=== PATIENT | female | born 1960 | race Caucasian/White ===

== ENCOUNTER 2022-01-29 10:31 | Outpatient (CLI) | payer BC, SELFPAY | END 2022-01-29 10:32 | disposition home or self-care (01) | PROVIDERS: Visit Provider Orthopaedic Surgery | DX: N30.10 Interstitial cystitis (chronic) without hematuria (principal); Z01.818 Encounter for other preprocedural examination | CPT/HCPCS: 87086; 87088 ==

== ENCOUNTER 2022-02-02 01:36 | Day surgery (SDC) | payer BC, SELFPAY ==
[2022-01-26 11:37] VITALS: BMI 48.8
--- NOTE | 2022-01-26 11:50 | PC.NURSE ---
Report to the Outpatient Waiting Room, entrance under the green pavilion located off [facility], at time 6:00 on date 02/02/22. OR Time: 7:30. - You and your visitor will be asked a series of questions to screen for COVID 19 for your protection. - Only one visitor is allowed at this time. - The patient visitor is requested to leave or wait in car when not with patient. - A mask is required within the hospital. Patients may have clear liquids (water, carbonated beverages, clear teas, apple juice) until 3 hours prior to surgery with a maximum of 20 ounces. - No food from midnight until time of surgery Take the following medications with a SIP of water the morning of surgery: INHALER, LOPRESSOR Medications to discontinue per physician: VITAMINS Date to take last dose: 01/29/[address] MCKEON'S INSTRUCTIONS Please no make-up, nail estonian, hairspray, perfume, deodorant, or body powder the day of surgery. No jewelry (including any body piercings) or valuables the day of surgery, leave them at home. Please take a shower or bath the night before, or the morning of, surgery with an antibacterial soap. Wear comfortable, loose fitting clothing. - Jewelry must be removed prior to entering the operating room. Rings and piercings that are not removed may be cut off. - The hospital will not accept responsibility for valuables. - Please leave all valuables, including medications, at home the day of surgery. If you are going home after surgery, a licensed route cdl driver must drive you home. - NO public transportation without another adult. - We recommend that an adult stay with you for 24 hours following discharge. - We also recommend that you do not drive, make important decision, drink alcoholic beverages, or take any drugs that were not prescribed by your health care provider for at least 24 hours after your discharge time. Follow any additional instructions given to you from your surgeon. If you or anyone in your household have experienced Covid symptoms in the past week, please notify your surgeon or the nurse liaison at the phone number below for possible testing. Telephone instructions given to PT - JILL QUEZADA and asked if any additional questions and then verbalized understanding. Patient advised to call surgeon office or pre surgery nurse liaison [phone] if any additional questions.
--- NOTE | 2022-01-29 07:53 | PM.IMHP ---
H&P: HPI History of Present Illness Date/Time: 01/29/22 07:53 Chief Complaint: Hunner's ulcer Narrative: this is a 61-year-old female with symptoms and cystoscopy consistent with Hunner's ulceration. Biopsy shows inflammation. Review of Systems Review of Systems: Negative except for history of present illness PMFSH Family History Family History Other Diabetes mellitus Family history of cardiovascular disease Family history of elevated blood lipids Social History Social History Smoking status: Never smoker Alcohol intake: current Alcohol use details: VERY RARE Substance use: never Substance use type: does not use Spiritual care concerns: No Meds Home Medications and Allergies Home Medications Medication Instructions Recorded Confirmed Type biotin 5 mg tablet 5 mg PO DAILY 01/26/22 01/26/22 History budesonide-formoterol HFA 160 2 puff inhalation Q12H 01/26/22 01/26/22 History mcg-4.5 mcg/actuation aerosol inhaler (Symbicort) cetirizine 10 mg tablet (Zyrtec) 10 mg PO DAILY 01/26/22 01/26/22 History ibuprofen 600 mg tablet 600 mg PO QID PRN Pain 01/26/22 01/26/22 History metoprolol tartrate 50 mg tablet 25 mg PO BID 01/26/22 01/26/22 History (Lopressor) montelukast 10 mg tablet 10 mg PO DAILY 01/26/22 01/26/22 History (Singulair) Allergies Allergy/AdvReac Type Severity Reaction Status Date / Time acetaminophen Allergy Hives Verified 01/26/22 11:31 [From Darvocet-N] propoxyphene Allergy Hives Verified 01/26/22 11:31 [From Darvocet-N] erythromycin base AdvReac Unknown Diarrhea Verified 01/26/22 11:31 Exam Narrative: no acute distress normal breathing alert oriented x3 Assessment and Plan Assessment and plan (1) Hunner's ulcer: Code(s): N30.10 - Interstitial cystitis (chronic) without hematuria Status: Acute Assessment and Plan: cystoscopy, bladder biopsy, steroid injection. Understands risks of bleeding, infection, damage to the bladder, lack of efficacy. She agrees to proceed
[2022-02-02 06:30] VITALS: BP 200/102; PULSE 74; RESP 18; TEMP 36.4; O2SAT 97
--- NOTE | 2022-02-02 06:52 | P.PNAN_ITS ---
Anes - Initial Pre Proc Eval Procedure: Operation Date: 02/02/22 07:30 Proposed Procedures p Cystoscopy, Bladder Biopsy with Steroid Injection - Clemente Weaver MD Date/Time: 02/02/22 06:52 Surgeon: Clemente Weaver MD Pre Op Diagnosis: hunners ulcer Patient Data Age: 61 Gender: F Height: 1.61 m Weight: 130.2 kg Allergies Allergy/AdvReac Type Severity Reaction Status Date / Time propoxyphene Allergy Hives Verified 02/02/22 06:25 [From Darvocet-N] erythromycin base AdvReac Unknown Diarrhea Verified 02/02/22 06:25 Home Medications Medication Instructions Recorded Confirmed Type biotin 5 mg tablet 5 mg PO DAILY 01/26/22 02/02/22 History budesonide-formoterol HFA 160 2 puff inhalation Q12H 01/26/22 02/02/22 History mcg-4.5 mcg/actuation aerosol inhaler (Symbicort) cetirizine 10 mg tablet (Zyrtec) 10 mg PO DAILY 01/26/22 02/02/22 History ibuprofen 600 mg tablet 600 mg PO QID PRN Pain 01/26/22 02/02/22 History metoprolol tartrate 50 mg tablet 25 mg PO BID 01/26/22 02/02/22 History (Lopressor) montelukast 10 mg tablet 10 mg PO DAILY 01/26/22 02/02/22 History (Singulair) Patient hx anesthesia problems: none Family hx anesthesia problems: none Results Review: All pre-operative results and documents have been reviewed as part of the pre- operative evaluation. [facility] Past Medical History Medical History (Updated 02/02/22 @ 06:53 by Devin Aguilar MD) Asthma Morbid obesity Family History Family History Other Diabetes mellitus Family history of cardiovascular disease Family history of elevated blood lipids Social History Social History Smoking status: Never smoker Alcohol intake: current Alcohol use details: VERY RARE Substance use: never Substance use type: does not use Living arrangements: with family Spiritual care concerns: No Anes - Eval Final PreProcedure Day of Procedure 02/02/22 06:52 Patient weight: morbidly obese Heart: regular rate and rhythm Lungs: clear to auscultation Airway: Mallampati scale class II Neurological: alert and oriented Last oral intake: >/= 8 hours ASA classification: III Emergent: no Anesthetic plan: proceed Anesthesia type and monitoring: general GIVS and standard monitoring Results Review: All pre-operative results and documents have been reviewed as part of the pre- operative evaluation. Informed Consent: The patient's anesthetic plan and its attendant risks and benefits were discussed with the patient/family/POA. Questions were solicited and answers provided to the satisfaction of the patient/family/POA.
[2022-02-02] MEDS: LACTATED RINGERS 1,000 ML 30 ML IV CONT (07:05)
--- NOTE | 2022-02-02 07:16 | WPDHPUPDATE1 ---
History and Physical Update Update Date/Time: 02/02/22 07:16 History and Physical has been reviewed, including an updated exam of the patient. There are NO changes in the patient's condition. Risks, benefits, and alternatives have been discussed and questions answered. Patient agrees to proceed with procedure.
[2022-02-02] MEDS: ceFAZolin 3 GM/D5W 100 ML 100 ML IVPB (07:29)
[2022-02-02] MEDS: LIDOCAINE HCL 2% GEL UROJET 10 ML PKG MUCOUS MEM (07:57)
[2022-02-02] MEDS: TRIAMCINOLONE ACET INJ 40 MG/ML VIAL 200 MG IM (07:58)
[2022-02-02 08:14] VITALS: BP 169/88; PULSE 79; RESP 16; O2SAT 93
--- NOTE | 2022-02-02 08:17 | P.OP_ITS ---
Procedure Note - Detailed Date of Procedure 02/02/22 Pre-op Diagnosis hunners ulcer Post-op Diagnosis Same Procedure Performed Cystoscopy, bladder biopsy, steroid injection Surgeon Clemente Weaver MD Anesthesia General Findings Diffusely inflamed bladder. Areas of Hunner's ulceration on bilateral lateral wall Description of Procedure She was correctly identified. Informed consent obtained. She from the operating room. She was given general anesthesia. She was placed in dorsal lithotomy position. Pressure points were padded. Skin appropriate perioperative antibiotics. A time-out performed. Her bladder was diffusely reddened with 2 areas of Hunner's ulceration on the lateral mendosa. Both right and left lateral mendosa. These were remote from the ureteral orifice. I biopsied both these areas. I generously fulgurated the lesions. I then inject ed my Kenalog. 200 mg total. 5 cc of Kenalog. I refill ureteral the areas. All full urethra was done away from the renal orifice. There is no significant bleeding from the bladder. She was awakened and transferred to PACU in stable condition. Estimated Blood Loss 5 Pathology Yes (Bladder biopsy) Complications No immediate complications Condition Stable Disposition PACU
[2022-02-02 08:40] VITALS: BP 160/81; PULSE 61; RESP 16
[2022-02-02] MEDS: oxyCODONE HCL (*CRX) 5 MG TAB IR PO (08:47)
[2022-02-02 09:10] VITALS: BP 151/90; PULSE 62; RESP 16
[2022-02-02 09:40] VITALS: BP 155/74; PULSE 58; RESP 16
== END 2022-02-02 09:48 | disposition home or self-care (01) ==
PROVIDERS: Visit Provider Urology
PROC: 0TBB8ZX Excision of Bladder, Via Natural or Artificial Opening Endoscopic, Diagnostic (ICD-10-PCS; CPT 52204; principal; 2022-02-02 07:30)
DX: N30.10 Interstitial cystitis (chronic) without hematuria (principal); J45.909 Unspecified asthma, uncomplicated; Z79.51 Long term (current) use of inhaled steroids; E66.01 Morbid (severe) obesity due to excess calories; Z68.43 Body mass index [BMI] 50.0-59.9, adult
CPT/HCPCS: 52204; 52283; 88305; 88342; A9270; J0690; J2250; J2704; J3010; J3301; J7120

== ENCOUNTER → 2022-05-17 12:42 | Outpatient (CLI) | payer BC, SELFPAY ==
--- NOTE | ~2022-05-17 | CT_ITS ---
EXAMINATION: CT abdomen pelvis wo/w con DATE: 05/17/2022 13:39 INDICATION: Gross hematuria. TECHNIQUE: Computed tomography (CT) of the abdomen and pelvis was performed without and with intraven ous contrast using a total of 130 mL Omnipaque-350 intravenous contrast with a double-bolus technique for simultaneous opacification of the renal parenchyma and renal collecting system. Automated exposu re control and iterative reconstruction technique were employed. The dose-length product was 2355.12 mGy-cm. COMPARISON: None FINDINGS: The visualized portions of the lung bases demonstrate mild atelectasis. No pleural effusion. The hear t size is normal. No pericardial effusion. There is diffuse hepatic steatosis. The gallbladder, splee n, pancreas, and adrenal glands are normal. The kidneys are normal. There is no urolithiasis. The ure ters are well opacified and are normal. There is gas in the bladder lumen, likely from recent instrum entation. There is diverticulosis of the colon without evidence of diverticulitis. There are no dilat ed loops of bowel. The appendix is not visualized. There are no pathologically enlarged lymph nodes. There is no free intraperitoneal fluid. There is a left inguinal hernia containing fat. There is amilcar re thoracic and lumbar spondylosis. IMPRESSION: 1. No etiology for hematuria. Reviewed, dictated and finalized at location A. [employer]
--- NOTE | ~2022-05-17 | XR_ITS ---
EXAMINATION: XR abdomen/kub 1V DATE: 05/17/2022 13:00 INDICATION: Gross hematuria. TECHNIQUE: A supine view of the abdomen on 2 radiographs was obtained. COMPARISON: CT abdomen and pelvis 05/17/2022 FINDINGS: There are no dilated loops of bowel. There is a phlebolith in the pelvis. There is no uroli thiasis. IMPRESSION: 1. No urolithiasis. Reviewed, dictated and finalized at location A. [employer] IMPRESSION: 1. No urolithiasis.
[2022-05-17 13:17] LABS: Estimated Glomerular Filt Rate 56
== END ==
PROVIDERS: PCP Nurse Practitioner Adult Health; Visit Provider Nurse Practitioner Adult Health
DX: R31.0 Gross hematuria (principal)
CPT/HCPCS: 74018; 74178; Q9967

== ENCOUNTER 2024-01-31 00:26 | Day surgery (SDC) | payer BC, MEDICARE, SELFPAY ==
--- NOTE | 2024-01-26 09:37 | PM.IMHP ---
H&P: HPI History of Present Illness Date/Time: 01/26/24 09:37 Chief Complaint: Hunner's ulcer Narrative: is ready for another steroid injection. Last procedure was 1 year ago Review of Systems Review of Systems: All systems reviewed & are unremarkable except as noted in HPI and below PMFSH Past Medical History Medical History Asthma Morbid obesity Family History Family History Other Diabetes mellitus Family history of cardiovascular disease Family history of elevated blood lipids Social History Social History Smoking status: Never smoker Alcohol intake: current Alcohol use details: VERY RARE Substance use: never Substance use type: does not use Lack of Transportation: No Lack of Food: Never True Current Housing: I Have Housing Concerned About Future Housing: No Difficulty Paying Gas/Electric Bills: No Difficulty Paying for Meds: No Currently Unemployed: No Education: Bachelor's Degree Difficulty w/ Childcare or Family Care: No Living arrangements: with family Spiritual care concerns: No Meds Home Medications and Allergies Home Medications Medication Instructions Recorded Confirmed Type biotin 5 mg tablet 5 mg PO DAILY 01/26/22 03/20/23 History cetirizine 10 mg tablet (Zyrtec) 10 mg PO DAILY 01/26/22 03/20/23 History ibuprofen 600 mg tablet 600 mg PO QID PRN Pain 01/26/22 03/20/23 History metoprolol tartrate 50 mg tablet 25 mg PO BID 01/26/22 03/20/23 History (Lopressor) montelukast 10 mg tablet 10 mg PO DAILY 01/26/22 03/20/23 History (Singulair) levofloxacin 500 mg tablet 500 mg PO DAILY #6 tabs 02/02/22 03/20/23 Rx phenazopyridine 200 mg tablet 200 mg PO TID PRN pain 6 doses #30 02/02/22 03/20/23 Rx (Pyridium) tabs tramadol 50 mg tablet 50 mg PO Q6H PRN pain #20 tabs 02/02/22 03/20/23 Rx calcium carbonate 500 mg-vitamin 1 tablet PO DAILY 03/20/23 03/20/23 History D3 5 mcg (200 unit) tablet cefdinir 300 mg capsule 300 mg PO Q12H 03/20/23 03/20/23 History cyclobenzaprine 10 mg tablet 10 mg PO TID 03/20/23 03/20/23 History doxycycline hyclate 100 mg capsule 100 mg PO DAILY 03/20/23 03/20/23 History estradiol 0.01% (0.1 mg/gram) 1 appful vaginal DAILY 03/20/23 03/20/23 History vaginal cream (Estrace) fluticasone propionate 50 1 inh inhalation Q12H 03/20/23 03/20/23 History mcg/actuation blister powder for inhalation (Flovent Diskus) hydrocodone 5 mg-acetaminophen 325 1 tablet PO Q8H PRN 03/20/23 03/20/23 History mg tablet methenam 118 mg-m.blue 10 1 tablet PO QID 03/20/23 03/20/23 History mg-s.phos 40.8 mg-p.salic 36 mg-hyos capsule (Uribel) methenamine hippurate 1 gram 1 g PO BID 03/20/23 03/20/23 History tablet (Hiprex) Allergies Allergy/AdvReac Type Severity Reaction Status Date / Time propoxyphene Allergy Hives Verified 03/20/23 13:09 [From Roel] erythromycin base AdvReac Unknown Diarrhea Verified 03/20/23 13:09 Exam Narrative: no acute distress normal breathing alert and orient x3 Assessment and Plan Assessment and plan (1) Hunner's ulcer: Code(s): N30.10 - Interstitial cystitis (chronic) without hematuria Status: Acute Assessment and Plan: cystoscopy, bladder biopsy, steroid injection
[2024-01-28 10:13] VITALS: BMI 51.2
--- NOTE | 2024-01-28 10:27 | PC.NURSE ---
Report to the Outpatient Waiting Room, entrance under the green pavilion located off [facility], at 0930 on 01/31/24. Planned Procedure Time: 1130. Time changes happen often and if your time is changed the preop area will call you the afternoon before. - You and your visitor will be asked to self-screen and do not enter if you have any COVID symptoms. - A mask is optional within the hospital at this time. Patients may have clear liquids (water, carbonated beverages, clear teas, apple juice) until 3 hours prior to surgery with a maximum of 20 ounces. - No food from midnight until time of surgery Take the following medications with a SIP of water the morning of surgery: Metopropol, Inhaler and pain medication if needed DO NOT STOP ANY OF YOUR OTHER PRESCRIPTION MEDICATIONS PRIOR TO SURGERY ?EXCEPT THE FOLLOWING Medications to discontinue per physician Vitamins/supplements 3 days prior Please no make-up, nail german, hairspray, perfume, deodorant, or body powder the day of surgery. No jewelry (including any body piercings) or valuables the day of surgery, leave them at home. Please take a shower or bath the night before, or the morning of, surgery with an antibacterial soap. Wear comfortable, loose fitting clothing. - Jewelry must be removed prior to entering the operating room. Rings and piercings that are not removed may be cut off. - The hospital will not accept responsibility for valuables. - Please leave all valuables, including medications, at home the day of surgery. If you are going home after surgery, a licensed solid waste truck driver must drive you home. - NO public transportation without another adult if you receive anesthesia. - We recommend that an adult stay with you for 24 hours following discharge. - We also recommend that you do not drive, make important decision, drink alcoholic beverages, or take any drugs that were not prescribed by your health care provider for at least 24 hours after your discharge time. Follow any additional instructions given to you from your surgeon. If you or anyone in your household have experienced Covid symptoms in the past week, please notify your surgeon or the nurse liaison at the phone number below for possible testing. Telephone instructions given to patient and asked if any additional questions and then verbalized understanding. Patient advised to call surgeon office or pre surgery nurse liaison [phone] if any additional questions.
--- NOTE | 2024-01-31 06:23 | WPDHPUPDATE1 ---
History and Physical Update Update Date/Time: 01/31/24 06:23 History and Physical has been reviewed, including an updated exam of the patient. There are NO changes in the patient's condition. Risks, benefits, and alternatives have been discussed and questions answered. Patient agrees to proceed with procedure.
[2024-01-31 09:39] VITALS: BP 181/102; PULSE 64; RESP 18; TEMP 36.1; O2SAT 96
[2024-01-31 09:40] VITALS: BMI 53.6
[2024-01-31] MEDS: LACTATED RINGERS 1,000 ML 30 ML IV CONT (10:10)
--- NOTE | 2024-01-31 10:21 | WPDANESEPPF ---
Anes - Initial Pre Proc Eval Procedure: Operation Date: 01/31/24 11:30 Proposed Procedures p Cystoscopy, Bladder Biopsy, Steroid Injection - Clemente Weaver MD Date/Time: 01/31/24 10:21 Surgeon: Clemente Weaver MD Pre Op Diagnosis: hunners ulcer Patient Data Age: 63 Gender: F Height: 1.59 m Weight: 135.2 kg Allergies Allergy/AdvReac Type Severity Reaction Status Date / Time propoxyphene Allergy Unknown Hives Verified 01/31/24 09:57 [From Darvocet-N] erythromycin base AdvReac Unknown Diarrhea Verified 01/31/24 09:57 Home Medications Medication Instructions Recorded Confirmed Type biotin 5 mg tablet 5 mg PO DAILY 01/26/22 01/28/24 History calcium carbonate 500 mg-vitamin 1 tablet PO DAILY 03/20/23 01/28/24 History D3 5 mcg (200 unit) tablet Lactobacillus 1 cap PO DAILY 01/28/24 01/28/24 History acidophilus-Bifidobac.animalis 2.5 billion cell capsule (Daily Probiotic) albuterol sulfate 90 mcg/actuation 2 inh inhalation QID PRN Wheezing 01/28/24 01/28/24 History aerosol inhaler cetirizine 10 mg tablet (Zyrtec) 10 mg PO DAILY 01/28/24 01/28/24 History d-mannose 500 mg capsule (AZO 1,000 mg PO DAILY 01/28/24 01/28/24 History D-Mannose) dextromethorphan-guaifenesin ER 60 1 tablet PO Q12H PRN asthma 01/28/24 01/28/24 History mg-1,200 mg tab,extend release,12hr (Mucinex DM) ibuprofen 600 mg tablet 600 mg PO BID PRN Pain 01/28/24 01/28/24 History metoprolol tartrate 50 mg tablet 50 mg PO Q12H 01/28/24 01/28/24 History (Lopressor) Patient hx anesthesia problems: none Family hx anesthesia problems: none Results Review: All pre-operative results and documents have been reviewed as part of the pre-operative evaluation. [facility] Past Medical History Medical History Asthma Morbid obesity Family History Family History Other Diabetes mellitus Family history of cardiovascular disease Family history of elevated blood lipids Social History Social History Smoking status: Never smoker Second hand tobacco smoke exposure: No Alcohol intake: never Alcohol use details: VERY RARE Substance use: never Substance use type: does not use Lack of Transportation: No Lack of Food: Never True Current Housing: I Have Housing Concerned About Future Housing: No Difficulty Paying Gas/Electric Bills: No Difficulty Paying for Meds: No Currently Unemployed: No Education: Bachelor's Degree Difficulty w/ Childcare or Family Care: No Living arrangements: with family Spiritual care concerns: No Anes - Eval Final PreProcedure Day of Procedure 01/31/24 10:21 Patient weight: morbidly obese Heart: regular rate and rhythm Lungs: clear to auscultation Airway: Mallampati scale class II and special considerations (Missing upper teeth post aspect. ) Neurological: alert and oriented Last oral intake: >/= 8 hours ASA classification: III Emergent: no Anesthetic plan: proceed Anesthesia type and monitoring: general GIVS and standard monitoring Results Review: All pre-operative results and documents have been reviewed as part of the pre-operative evaluation. HTN, asthma (RAD), denies JEREMIE. Informed Consent: The patient's anesthetic plan and its attendant risks and benefits were discussed with the patient/family/POA. Questions were solicited and answers provided to the satisfaction of the patient/family/POA.
[2024-01-31] MEDS: ceFAZolin 3 GM/D5W 100 ML 100 ML IVPB (10:23)
[2024-01-31] MEDS: LIDOCAINE HCL 2% GEL UROJET 10 ML PKG MUCOUS MEM (10:29)
[2024-01-31 10:51] VITALS: BP 139/49; PULSE 64; RESP 14; O2SAT 95
--- NOTE | 2024-01-31 10:53 | W.PM.PROC2 ---
Procedure Note - Detailed Date of Procedure 01/31/24 Pre-op Diagnosis hunners ulcer Post-op Diagnosis Same Procedure Performed cystoscopy, bladder biopsy, injection of steroids Surgeon Clemente Weaver MD Anesthesia MAC Indications this will recurrent Hunner's ulcer variety interstitial cystitis. She is here today for repeat treatment. She understands risks of bleeding, infection, need for repeat procedures, damage to the urinary tract. She agrees to proceed Findings inflamed area near dome of bladder Description of Procedure she was correctly identified. Informed consent obtained. From the operating room. She was given monitored anesthesia care. She was placed in dorsal lithotomy position. She was prepped and draped sterile fashion. Time-out performed. She was given appropriate perioperative antibiotics I examined the bladder via cystoscopy. There was an area of redness and irritation near the left dome of her bladder. This was biopsied. I did a superficial mucosal biopsy. This was then fulgurated. I then injected my steroids. I injected 5 mL of Kenalog. Concentration was 40 mg per mil. A total of 200 mg of medication.. there was minimal bleeding from the injection sites. Her bladder was drained. She was awakened transferred to PACU in stable condition Estimated Blood Loss 1 Pathology Yes ( Bladder biopsy) Complications No immediate complications Condition Stable Disposition PACU
[2024-01-31 11:22] VITALS: BP 114/97; PULSE 51; RESP 16; O2SAT 96
[2024-01-31 11:52] VITALS: BP 143/93; PULSE 57; RESP 16; O2SAT 97
--- NOTE | 2024-01-31 12:12 | SUR.PHASEII ---
Pt does NOT have to void prior to discharge per MD Weaver
== END 2024-01-31 12:10 | disposition home or self-care (01) ==
PROVIDERS: Visit Provider Urology
PROC: 0TBB8ZX Excision of Bladder, Via Natural or Artificial Opening Endoscopic, Diagnostic (ICD-10-PCS; CPT 52204; principal; 2024-01-31 11:30)
DX: N30.10 Interstitial cystitis (chronic) without hematuria (principal); J45.909 Unspecified asthma, uncomplicated; Z79.51 Long term (current) use of inhaled steroids; E66.01 Morbid (severe) obesity due to excess calories; Z68.43 Body mass index [BMI] 50.0-59.9, adult
CPT/HCPCS: 52204; 52283; 88305; J0690; J1100; J2405; J2704; J3010; J3301; J7120

== ENCOUNTER 2025-06-12 10:08 | Outpatient (CLI) | payer BC, MEDICARE, SELFPAY ==
--- OUTSIDE RECORDS SUMMARY | 2025-06-12 10:12 | XMS_ITS | Encounter Summary ---
Author Organization [facility] Address [address] [place] [address] Phone Care Team Providers Care Envelope Stamping Machine Operator Name Role Phone Vijay Franco MD Unavailable Provider, None Primary Care Provider Jamila Damon APRN, OBSTETRICIAN/GYNECOLOGIST Primary Care P rovider Reason for Visit * Reason Comments Medication Refill Encounter Details Date Type Department Care Team (Late st Contact Info) Description 02/13/2021 Refill [facility] [address] [place] [address] Vijay Franco MD [address] [place] [address] Medication Refill Social History Tobacco Use Types Packs/Day Years Used Date Smoking Tobacco: Never Smokeless Tobacco: Never Alcohol Use Standard Drinks/Week Comments Not Currently 0 (1 standard drink = 0.6 oz pur e alcohol) OCCASIONALLY Sexually Active Control Partners Comments Yes Male Comments No Sex and Gender Information Value Date Recorded Sex Assigned at Female 05/20/2024 10:10 AM MILK DELIVERER Legal Sex Female 12:44 AM CDT Gender Identity Female 05/20/2024 10:10 AM MILK DELIVERER Sexual Orientation Straight 05/20/2024 10 :10 AM MILK DELIVERER COVID-19 Exposure Response Date Recorded In the last month, have you been in contact with someone who was confirmed or suspected to have Coronavirus / COVID-19? No / Unsure 01/25/2021 8:12 AM CDT documented as of this encounter Miscellaneous Notes * Telephone Encounter - Maye Pathak RN - 02/13/2021 8:38 AM CDT Patient needs an appointment last office visit was on 10/08/16 documented in this encounter Plan of Treatment Upcoming Encounters Date Type Department Care Team (Late st Contact Info) Description 06/14/2025 2:45 PM MILK DELIVERER Office Visit [facility] - Primary Care - [place] [address] [place] [address] Jamila Lee APRN, OBSTETRICIAN/GYNECOLOGIST [address] [place] [address] documented as of this encounter Visit Diagnoses Not on filedocumented in this encounter Additional Health Concerns Infection Onset Date Last Indicated Resolved Time COVID - 19 06/06/2021 06/06/2021 06/06/2021 12:3 2 PM MILK DELIVERER COVID - 19 06/06/2021 06/06/2021 06/26/2021 12:1 6 AM MILK DELIVERER documented as of this encounter Care Teams Envelope Stamping Machine Operator Relationship Specialty Start Date End Date Provider, None [place] PCP - General 05/10/16 05/11/24 Jamila Lee APRN, OBSTETRICIAN/GYNECOLOGIST [address] [place] [address] PCP - General Advanced Practice Nurse 05/12/24 Vijay Franco MD Consulting Physician Pulmonary Disease 05/10/16 documented as of this encounter
--- OUTSIDE RECORDS SUMMARY | 2025-06-12 10:12 | XMS_ITS | Clinical Summary ---
Author Organization [facility] Address [address] [place] [address] Phone Care Team Providers Care Diet Supervisor Name Role Phone No, Physician Primary Care Provider [phone] Allergies Active Allergy Reactions Criticality Noted Date Comments Propoxyphene Hives Medium Propoxyphene-Acetaminophen Urticaria Medium 8 Medications tiotropium (SPIRIVA WITH HANDIHALER) 18 mcg per inhalation capsule inhale 1 capsule by inhalation route every day 0 0 7 Active ibuprofen (ibuprofen) 200 mg tab/cap 200 mg. 0 1 Active cetirizine (ZyrTEC) 10 mg tablet Take 1 tablet (10 mg total) by mouth daily Active montelukast (SINGULAIR) 10 mg tablet Take 1 tablet (10 mg total) by mouth daily 1 Active metoprolol tartrate (LOPRESSOR) 25 mg immediate release tablet Take 1 tablet (25 mg total) by mouth 2 (two) times a day Active albuterol HFA (ProAir HFA) 90 mcg/actuation inhalerIndicatio ns:Viral URI with cough,Asthma with acute exacerbation, unspecified asthma severity, unspecified whether persistent Inhale 2 puffs every 4 (four) hours as needed for wheezing or shortness of breath 8.5 g 1 Active Flovent Diskus 50 mcg/actuation diskus inhalerIndicatio ns:Asthma with acute exacerbation, unspecified asthma severity, unspecified whether persistent Inhale 2 puffs 2 (two) times a day Rinse mouth with water after use. Do not swallow. 60 each 1 Active multivitamin capsule Take 1 capsule by mouth daily Active methenamine (HIPREX) 1 gram tablet 3 Active estradioL (ESTRACE) 0.01 % (0.1 mg/gram) vaginal cream 3 Active L. acidophilus/Bifi d. animalis 32 billion cell capsule Take 1 capsule by mouth daily Active albuterol HFA (PROVENTIL HFA,VENTOLIN HFA,PROAIR HFA) 90 mcg/actuation inhalerIndicatio ns:Moderate asthma with exacerbation, unspecified whether persistent Inhale 2 puffs every 6 (six) hours as needed for wheezing 1 each 4 Active Active Problems Problem Noted Date Diagnosed Date Status post foot joint surgery 12/26/2017 0 12/04/2022 Essential (primary) hypertension 06/14/2016 Mild intermittent asthma without complication Surgical History Surgery Date Site/Laterality Comments URETHRAL DILATION 07/08/1969 - 07/07/1970 CERVICAL BIOPSY W/ LOOP ELECTRODE EXCISION 07/08/2000 - 07/07/2001 ARIANA II to III of cervix REPLACEMENT TOTAL KNEE 07/08/2009 - 07/07/2010 Right KNEE ARTHROSCOPY 07/08/1996 - 07/07/1997 Right Medical History Medical History Date Comments Hypertension Osteoarthritis Abnormal Pap smear of cervix 2000 ARIANA II to III Seasonal allergies Asthma Diverticulitis 2013 Family History Medical History Relation Name Comments Neurodegenerative disease Father pr ogressive supranuclear palsy; COD Skin cancer Father Pancreatic cancer Father's Sister 1 Hodgkin's lymphoma Father's Sister 2 Heart attack Maternal Grandfather COD in his 50's Diabetes Maternal Grandmother Osteoporosis Maternal Grandmother Hyperlipidemia Mother Osteoporosis Mother Diabetes Mother's Brother Lung cancer Paternal Grandfather Hypertension Paternal Grandmother Stroke Paternal Grandmother Relation Name Status Comments Father Father's Sister 1 Father's Sister 2 Maternal Grandfather Maternal Grandmother Mother Mother's Brother Paternal Grandfather Paternal Grandmother Social History Tobacco Use Types Packs/Day Years Used Date Smoking Tobacco: Never Smokeless Tobacco: Never Tobacco Cessation:Counseling Given: Not Answered Alcohol Use Standard Drinks/Week Comments Yes 0 (1 standard drink = 0.6 oz pur e alcohol) Personal Safety Answer Date Recorded Have you ever been in or are you currently in a harmful physical or emotional relationship or is someone making you feel afraid or unsafe? Denies 11/30/2022 Comments No Sex and Gender Information Value Date Recorded Sex Assigned at Not on file Legal Sex Female 1:47 AM PATROL POLICE SERGEANT Gender Identity Not on file Sexual Orientation Not on file Occupation Industry Job Start Date Job End Date Retired Not on file Not on file Not on file Obstetrics History Para Term AB IAB SAB Ectopic Multiple Livin g Live Births 4 2 1 1 2 1 1 0 0 2 2 Date Outcome GA Total Labor Labor/2nd/3rd Weight Sex Type Anes PTL Alondra A1 A5 Name Clin Term SAB IAB Last Filed Vital Signs Vital Sign Reading Time Taken Comments Blood Pressure 162/96 07/23/2023 12:33 PM PATROL POLICE SERGEANT Pulse 104 07/23/2023 12:33 PM PATROL POLICE SERGEANT Temperature 36.7 C (98.1 F) 07/23/2023 12:33 PM PATROL POLICE SERGEANT Respiratory Rate 20 07/23/2023 12:3 3 PM PATROL POLICE SERGEANT Oxygen Saturation 96% 07/23/2023 12: 33 PM PATROL POLICE SERGEANT Inhaled Oxygen Concentration - - Weight 134.7 kg (296 lb 15.4 oz) 2023 12:33 PM PATROL POLICE SERGEANT Height 158.8 cm (5' 2.52) 07/23/2023 1 2:33 PM PATROL POLICE SERGEANT Body Mass Index 53.41 07/23/2023 12:33 PM PATROL POLICE SERGEANT Plan of Treatment Health Maintenance Due Date Last Done Comments Colon Cancer Screening-Colonoscopy 1960 Depression Screening 1960 Hepatitis C Screening 1960 DTaP/Tdap/Td Vaccine (1 - Tdap) 10/25/1971 Hepatitis B Screening 1978 Pneumococcal vaccine <65 (1 of 2 - PCV) 10/25/1979 Zoster Vaccine (1 of 2) 2010 Breast Cancer Screening-Mammogram 02/07/2022 02/07/2021, 07/03/2019, 09/19/2017 Cervical Cancer Screening 02/07/2022 02/07/2021, Regular Well Visit/Exam 18-64 02/26/2024, 02/22/2022, 02/07/2021, Additional history exists Covid-19 Vaccine (2024-2 6 season) 2025 05/12/2021, 10/01/2020, 09/08/2020 Influenza Vaccine (#1) 2025 , 04/05/2019, 04/09/2017 Procedures Procedure Name Priority Date/Time Associated Diagnosis Comments SCREENING MAMMOGRAM 2D BILATERAL Schedule Routine, Read Routine (OP Routine) 02/07/2021 11:04 AM CDT Encounter for screening mammogram for malignant neoplasm of breast IMAGING PAP AND HPV MRNA E6/E7 Routine 02/07/2021 12:00 AM CDT from Last 3 Months or Most Recently Relevant to Health Maintenance Results * Screening Mammogram 2D Bilateral (02/07/2021 11:04 AM CDT) Anatomical Region Laterality Modality Breast Bilateral Mammography Narrative 02/07/2021 2:34 PM CDT BILATERAL DIGITAL MAMMOGRAPHY The present examination has been compared to prior imaging studies dated 03 July 2019. Mammography Findings CAD (computer-aided detection) software was utilized. The breasts are heterogeneously dense. This may lower the sensitivity of mammography. No masses, significant calcifications or other abnormalities are seen. There are multiple punctate calcifications within both breasts, unchanged. Several circumscribed oil cysts are also seen within the right breast. Impression There is no mammographic evidence of malignancy. Screening mammogram in 1 year is recommended. BI-RADS Category 2: Benign. PATIENT LETTER SENT us Maye Mark CAGE FIGHTER IMG MAMMO PROCEDURES Janelle l Result * Imaging Pap and HPV mRNA E6/E7 (02/07/2021 12:00 AM CDT) CLINICAL INFORMATION: [employer] [facility] Comment:[facility]menopausal [facility]MP [facility] Comment:POST JERRI Previous Pap [employer] [facility] Comment:INFORMATION NOT PROV IDED Prev. Bx [facility] Comment:INFORMATION NOT PROV IDED SOURCE: [facility] Comment:Cervix, Endocervix Pap, specimen adequacy [facility] Comment: Satisfactory for evaluation. Endocervical/transformation zone component absent. HPV interp [facility] Comment:Negative for intraep ithelial lesion or malignancy. COMMENTS [facility] Comment: This Pap test has been evaluated with computer assisted technology. Building Performance Consultant [facility] Comment: DDS, CT(ASCP) CT screening location: [place] [address] [address] [place] [address] [facility] Comment: EXPLANATORY NOTE: The Pap is a screening test for cervical cancer. It is not a diagnostic test and is subject to false negative and false positive results. It is most reliable when a satisfactory sample, regularly obtained, is submitted with relevant clinical findings and history, and when the Pap result is evaluated along with historic and current clinical information. Human papillomavirus RNA, High Risk E6/E7 Not Detected Not Detected [facility] [employer] [place] Comment: Methodology: E Learning Coordinator-Mediated Amplification This assay detects E6/E7 viral messenger RNA (mRNA) from 14 high-risk HPV types (16,18,31,33,35,39,45,51,52,56,58,59,66,68). The analytical performance characteristics of this assay have been determined by [employer]. The modifications have not been cleared or approved by the FDA. This assay has been validated pursuant to the CLIA regulations and is used for clinical purposes. For additional information, please refer to http://education.[employer]/faq/HCZ453x3 (This link if provided for information/ educational purposes only.) 02/07/2021 02/08/2021 11: 38 AM CDT Narrative [facility] - 02/09/2021 2:04 PM CDT FASTING: UNKNOWN us Maye Mark CAGE FIGHTER LAB PATHOLOGY ORDERABLES Final Result [facility] [address] [address] [place] [id number] [employer] Technologies[employer]to [place] [address] [address] [place] [id number] from Last 3 Months or Most Recently Relevant to Health Maintenance Insurance ANTHEM ACCESS CHOICE [facility] Address: [facility] [id number] [place] [address] COMMERCIAL GENERIC ANTHEM ACCESS CHOICE MEDICARE Care Teams Diet Supervisor Relationship Specialty Start Date End Date No, Physician PCP - General 08/28/17
--- OUTSIDE RECORDS SUMMARY | 2025-06-12 10:12 | XMS_ITS | Encounter Summary ---
Author Organization [facility] Address [address] [place] [address] Phone Care Team Providers Care Municipal Services Manager Name Role Phone Vijay Franco MD Unavailable Provider, None Primary Care Provider Jamila Damon APRN, IRONING PLEATER Primary Care P rovider Reason for Visit * Reason Comments Medication Refill Encounter Details Date Type Department Care Team (Late st Contact Info) Description 04/13/2024 Refill [facility] [address] [place] [address] Thomas Sewell APRN, IRONING PLEATER [address] [place] [address] Medication Refill Social History Tobacco Use Types Packs/Day Years Used Date Smoking Tobacco: Never Smokeless Tobacco: Never Alcohol Use Standard Drinks/Week Comments Not Currently 0 (1 standard drink = 0.6 oz pur e alcohol) OCCASIONALLY Sexually Active Control Partners Comments Yes Male Comments No Sex and Gender Information Value Date Recorded Sex Assigned at Female 05/20/2024 10:10 AM PUBLIC INFORMATION RELATIONS MANAGER Legal Sex Female 12:44 AM CDT Gender Identity Female 05/20/2024 10:10 AM PUBLIC INFORMATION RELATIONS MANAGER Sexual Orientation Straight 05/20/2024 10 :10 AM PUBLIC INFORMATION RELATIONS MANAGER documented as of this encounter Plan of Treatment Upcoming Encounters Date Type Department Care Team (Late st Contact Info) Description 06/14/2025 2:45 PM PUBLIC INFORMATION RELATIONS MANAGER Office Visit [facility] - Primary Care - [place] [address] [place] [id number] Jamila Lee APRN, CNP [address] [place] [address] documented as of this encounter Visit Diagnoses Not on filedocumented in this encounter Care Teams Municipal Services Manager Relationship Specialty Start Date End Date Provider, None [place] PCP - General 05/10/16 05/11/24 Jamila Lee APRN, LINH [address] [place] [address] PCP - General Advanced Practice Nurse 05/12/24 Vijay Franco MD Consulting Physician Pulmonary Disease 05/10/16 documented as of this encounter
--- OUTSIDE RECORDS SUMMARY | 2025-06-12 10:12 | XMS_ITS | Encounter Summary ---
Author Organization [facility] Address [address] [place] [address] Phone Care Team Providers Care Convention Worker Name Role Phone Jamila Lee APRN, CNP Primary Care P rovider Encounter Details Date Type Department Care Team (Latest Contact Info) Description 02/12/2025 Transcribe Orders [facility] [address] [place] [address] Jamila Lee APRN, ADVERTISING ASSOCIATE [address] [place] [address] Abnormal mammogram (Primary Dx) Social History Tobacco Use Types Packs/Day Years Used Date Smoking Tobacco: Never Smokeless Tobacco: Never Alcohol Use Standard Drinks/Week Comments Not Currently 0 (1 standard drink = 0.6 oz pur e alcohol) special occassions [facility] Utilities Answer Date Recorded In the past 12 months has [email or web address] electric, gas, oil, or water company threatened to shut off services in your home? No 05/11/2024 Social Connection and Isolation Panel Answer Date Recorded In a typical week, how many times do you talk on the phone with family, friends, or neighbors? More than three times a week 05/11/2024 How often do you get togethe r with friends or relatives? More than three times a week 05/11/2024 How often do you attend [facility] or episcopalian services? More than 4 times per year 05/11/2024 Do you belong to any clubs o r organizations such as hoahaoism groups, unions, fraternal or athletic groups, or school groups? No 05/11/2024 How often do you attend meet ings of the clubs or organizations you belong to? Patient declined 05/11/2024 Are you , , di vorced, , never , or living with a partner? 05/11/2024 AUDIT-C Answer Date Recorded Q1: How often do you have a drink containing alc ohol? Monthly or less 05/11/2024 Q2: How many drinks containi ng alcohol do you have on a typical day when you are drinking? 1 or 2 05/11/2024 Q3: How often do you have si x or more drinks on one occasion? Never 05/11/2024 Overall Financial Resource Strain (CARDIA) Answe r Date Recorded How hard is it for you to pa y for the very basics like food, housing, medical care, and heating? Not very hard 05/11/2024 PHQ-2 Answer Date Recorded Total Score - Questions 1-9 2 01/06 [facility] Occup[facility] ional [facility] - Occupational Stress Questionnaire Answer Date Recorded Do you feel stress - tense, restless, nervous, or anxious, or unable to sleep at night because your mind is troubled all the time - these days? Only a little 05/11/2024 Exercise Vital Sign Answer Date Recorde d On average, how many days pe r week do you engage in moderate to strenuous exercise (like a brisk walk)? 2 days 05/11/2024 On average, how many minutes do you engage in exercise at this level? 20 min 05/11/2024 Hunger Vital Sign Answer Date Recorded Within the past 12 months, y ou worried that your food would run out before you got the money to buy more. Never true 05/11/20 24 Within the past 12 months, t he food you bought just didn't last and you didn't have money to get more. Never true 05/11/2024 PRAPARE - Transportation Answer Date Re corded In the past 12 months, has l ack of transportation kept you from medical appointments or from getting medications? No 10/2023 In the past 12 months, has l ack of transportation kept you from meetings, work, or from getting things needed for daily living? No 05/11/2024 Housing Stability Vital Sign Answer Jaylon e Recorded In the last 12 months, was t here a time when you were not able to pay the mortgage or rent on time? No 05/11/2024 In the past 12 months, how m any times have you moved where you were living? 0 05/11/2024 At any time in the past 12 m [facility], were you homeless or living in a senior care (including now)? No 05/11/2024 Sexually Active Control Partners Comments Yes Male Comments No Sex and Gender Information Value Date Recorded Sex Assigned at Female 05/20/2024 10:10 AM MARGARINE CHURN OPERATOR Legal Sex Female 12:44 AM CDT Gender Identity Female 05/20/2024 10:10 AM MARGARINE CHURN OPERATOR Sexual Orientation Straight 05/20/2024 10 :10 AM MARGARINE CHURN OPERATOR documented as of this encounter Plan of Treatment Upcoming Encounters Date Type Department Care Team (Late st Contact Info) Description 06/14/2025 2:45 PM MARGARINE CHURN OPERATOR Office Visit [facility] - Primary Care - [place] [address] [place] [id number] Jamila Lee APRN, CNP [address] [place] [address] documented as of this encounter Goals Goal Patient Goal Type Associated Problems Recent Progress Patient-Stated? Author Help patient manage hypertension Care Plan [facility] HYPERTENSION CONCERN (PATIENT NOT ON HIGH BLOOD PRESSURE MEDICATIONS) No Jamila Gupta APRN, LINH documented as of this encounter Visit Diagnoses Diagnosis Abnormal mammogram- Primary Abnormal mammogram, unspecified documented in this encounter Additional Health Concerns Active Problems Noted Date Diagnosed Date [facility] HYPERTENSION CONCERN (P ATIENT NOT ON HIGH BLOOD PRESSURE MEDICATIONS) 05/12/2024 Assessment Noted Time PHQ-9 Depression Total Score: 2 01/27/20 25 2:59 PM CDT documented as of this encounter Care Teams Convention Worker Relationship Specialty Start Date End Date Jamila Lee APRN, LINH [address] [place] [address] PCP - General Advanced Practice Nurse 05/12/24 documented as of this encounter
--- OUTSIDE RECORDS SUMMARY | 2025-06-12 10:12 | XMS_ITS | Encounter Summary ---
Author Organization [facility] Address [address] [place] [address] Phone Care Team Providers Care Shirt Finisher Name Role Phone Vijay Franco MD Unavailable Provider, None Primary Care Provider Jamila Damon APRN, GLASS DRILLER Primary Care P rovider Reason for Visit * Reason Comments Medication Refill Encounter Details Date Type Department Care Team (Late st Contact Info) Description 04/10/2024 Refill [facility] UROLOGY [address] [place] [address] Thomas Sewell APRN, GLASS DRILLER [address] [place] [address] Medication Refill Social History Tobacco Use Types Packs/Day Years Used Date Smoking Tobacco: Never Smokeless Tobacco: Never Alcohol Use Standard Drinks/Week Comments Not Currently 0 (1 standard drink = 0.6 oz pur e alcohol) OCCASIONALLY Sexually Active Control Partners Comments Yes Male Comments No Sex and Gender Information Value Date Recorded Sex Assigned at Female 05/20/2024 10:10 AM BRASS MOLDER Legal Sex Female 12:44 AM CDT Gender Identity Female 05/20/2024 10:10 AM BRASS MOLDER Sexual Orientation Straight 05/20/2024 10 :10 AM BRASS MOLDER documented as of this encounter Plan of Treatment Upcoming Encounters Date Type Department Care Team (Late st Contact Info) Description 06/14/2025 2:45 PM BRASS MOLDER Office Visit [facility] - Primary Care - [place] [address] [place] [id number] Jamila Lee APRN, CNP [address] [place] [address] documented as of this encounter Visit Diagnoses Not on filedocumented in this encounter Care Teams Shirt Finisher Relationship Specialty Start Date End Date Provider, None [place] PCP - General 05/10/16 05/11/24 Jamila Lee APRN, LINH [address] [place] [address] PCP - General Advanced Practice Nurse 05/12/24 Vijay Franco MD Consulting Physician Pulmonary Disease 05/10/16 documented as of this encounter
--- OUTSIDE RECORDS SUMMARY | 2025-06-12 10:12 | XMS_ITS | Clinical Summary ---
Author Organization [facility] Address [address] [place] [address] Care Team Providers Care Laboratory Equipment Installer Name Role Phone Clemente Weaver MD Unavailable [phone] Vijay Franco MD Unavailable None, Provider MD Primary Care Provider Unavaila ble Allergies Active Allergy Reactions Criticality Noted Date Comments Propoxyphene Hives 01/25/2023 Medications metoprolol tartrate (LOPRESSOR) 25 MG tablet Take 1 tablet (25 mg total) by mouth 2 (two) times daily. Active montelukast (SINGULAIR) 10 MG tablet Take 1 tablet (10 mg total) by mouth daily. Active cetirizine (ZYRTEC) 10 MG tablet Take 1 tablet (10 mg total) by mouth daily. Active Multiple Vitamin (MULTI VITAMIN OR) Take 1 tablet by mouth daily. One a day multivitamin Active ibuprofen (MOTRIN) 200 MG tablet Take 2 tablets (400 mg total) by mouth every 6 (six) hours as needed for Pain. Active acetaminophen (TYLENOL) 500 MG tablet Take 2 tablets (1,000 mg total) by mouth every 6 (six) hours as needed for Pain. Active probiotic (FLORAJEN3) Cap capsule Take 1 capsule by mouth daily with breakfast. Active fluticasone propionate (FLOVENT HFA) 220 MCG/ACT inhaler Inhale 2 puffs into the lungs 2 (two) times daily. Active budesonide-form oterol (SYMBICORT) 80-4.5 MCG/ACT inhaler Inhale 2 puffs into the lungs 2 (two) times daily as needed. Active albuterol sulfate HFA 108 (90 Base) MCG/ACT inhaler Inhale 2 puffs into the lungs every 4 (four) hours as needed for Wheezing. 90 mcg Active HYDROcodone-be taminophen (NORCO) 5-325 MG tabletIndicatio ns:Acute Pain < 7 Day Supply Take 1-2 tablets by mouth every 4 (four) hours as needed for Pain. Indications: Acute Pain < 7 Day Supply 24 tablet 3 Active Immunizations Immunization Administration Dates Next Due PFIZER COVID-19 (ORIGINAL FO RMULATION, PURPLE CAP) mRNA, LNP-S, PF, 30 MCG/0.3 ML DOSE 05/12/2021,10/01/2020,09/08/2020 PFIZER COVID-19 BIVALENT (12 +) mRNA, LNP-S, PF, 30 MCG/0.3 ML DOSE 03/16/2022 Family History Medical History Relation Comments Hypertension Father COPD Mother Hypertension Mother Relation Status Comments Daughter Alive Father (Age 80s) of parki nson's like condition and severe dementia Mother Alive Other Alive Son Alive Social History Tobacco Use Types Packs/Day Years Used Date Smoking Tobacco: Never Smokeless Tobacco: Never Alcohol Use Standard Drinks/Week Comments Not Currently 0 (1 standard drink = 0.6 oz pure alcohol) very rarely, special occasion, now and then Comments No Sex and Gender Information Value Date Recorded Sex Assigned at Not on file Legal Sex Female 2:08 PM CDT Gender Identity Not on file Sexual Orientation Not on file Last Filed Vital Signs Vital Sign Reading Time Taken Comments Blood Pressure 159/91 02/07/2023 12:35 PM CDT Pulse 63 02/07/2023 12:35 PM CDT Temperature 36.2 C (97.2 F) 02/07/2023 12:35 PM CDT Respiratory Rate 16 02/07/2023 12:35 PM CDT Oxygen Saturation 94% 02/07/2023 12:35 PM CDT Inhaled Oxygen Concentration - - Weight 133 kg (293 lb 3.4 oz) 02/07/2023 10:29 A M CDT Height 160 cm (5' 3) 02/07/2023 10:29 AM CDT Body Mass Index 51.94 02/07/2023 10:29 AM CDT Plan of Treatment Health Maintenance Due Date Last Done Comments Cervical Cancer Screening Pap Smear (Age 30 to 64) Every 3 Years 1960 Colorectal Cancer Screening Colonoscopy (10 Years) 1960 Annual Physical 10/25/1963 Hepatitis C 1978 DTaP, Tdap and Td Vaccines (1 - Tdap) 10/25/1979 Cervical Cancer Screening Pap with HPV Testing (Age 30 to 64) Every 5 Years 1990 Cervical Cancer Screening with HPV 1990 Mammogram Screening 2000 Pneumococcal Vaccine: 50+ Years (1 of 1 - PCV) 2010 Zoster Vaccines (1 of 2) 2010 RSV Immunization or 60+ Years (1 - Risk 60-74 years 1-dose series) 2020 COVID-19 Vaccine ( - season) 2025 03/16/2022, 05/12/2021, 10/01/2020, Additional history exists Influenza Adult (#1) 2025 04/27/2022, 04/26/2021, 04/27/2020, Additional history exists Hepatitis A Vaccines Aged Out No long er eligible based on patient's age to complete this topic Meningococcal B Vaccine Aged Out No l onger eligible based on patient's age to complete this topic Meningococcal Vaccine Aged Out No jose catracho eligible based on patient's age to complete this topic RSV Immunizations Under 20 Months Aged Out No longer eligible based on patient's age to complete this topic Insurance [facility] Care Teams Laboratory Equipment Installer Relationship Specialty Start Date End Date None, Provider, PCP - General UNKNOWN PHYSICIAN SPECIALTY 02/04/23 Clemente Weaver MD [address] [place] [address] UROLOGY 01/25/23 Vijay Franco MD [address] [place] [address] Referring Physician PULMONARY DISEASE 01/25/23
--- OUTSIDE RECORDS SUMMARY | 2025-06-12 10:12 | XMS_ITS | Encounter Summary ---
Author Organization [facility] Address [address] [place] [address] Phone Care Team Providers Care Hot Cell Technician Name Role Phone Jamila Lee APRN, CNP Primary Care P rovider Reason for Visit * Reason Comments Medication Refill Encounter Details Date Type Department Care Team (Late st Contact Info) Description 05/09/2025 Refill [facility] - Primary Care - [place] [address] [place] [phone] Jamila Lee APRN, CNP [address] [place], [place] [phone] Medication Refill Social History Tobacco Use Types Packs/Day Years Used Date Smoking Tobacco: Never Smokeless Tobacco: Never Alcohol Use Standard Drinks/Week Comments Not Currently 0 (1 standard drink = 0.6 oz pur e alcohol) special occassions [facility] Utilities Answer Date Recorded In the past 12 months has [employer] electric, gas, oil, or water company threatened [...] week 05/11/2024 How often do you attend chur ch or denominational services? More than 4 times per year 05/11/2024 Do you belong to any clubs o r organizations such as shinto groups, unions, fraternal or athletic groups, or [...] Total Score - Questions 1-9 2 01/06 [facility] - Occupational Stress [...] any time in the past 12 m [facility], were you homeless or living in a half-way (including now)? No 05/11/2024 Sexually Active Control Partners Comments Yes Male Comments No Sex and Gender Information Value Date Recorded Sex Assigned at Female 05/20/2024 10:10 AM DRAW TENDER Legal Sex Female 12:44 AM CDT Gender Identity Female 05/20/2024 10:10 AM DRAW TENDER Sexual Orientation Straight 05/20/2024 10 :10 AM DRAW TENDER documented as of this encounter Miscellaneous Notes * Telephone Encounter - Aziza Escobar RN - 05/10/2025 11:52 AM DRAW TENDER Duplicate request. TENDER documented in this encounter Plan of Treatment Upcoming Encounters Date Type Department Care Team (Late st Contact Info) Description 06/14/2025 2:45 PM DRAW TENDER Office Visit [facility] - [place] [address] [place] [phone] Jamila Lee APRN, CNP [address] [place] [address] documented as of this encounter Goals Goal Patient Goal Type Associated Problems Recent Progress Patient-Stated? Author Help patient manage hypertension Care Plan [facility] HYPERTENSION CONCERN (PATIENT NOT ON HIGH BLOOD PRESSURE MEDICATIONS) No Jamila Gupta APRN, LINH documented as of this encounter Visit Diagnoses Diagnosis Mild persistent asthma without complication Unspecified asthma documented in this encounter Additional Health Concerns Active Problems Noted Date Diagnosed Date [facility] HYPERTENSION CONCERN (P ATIENT NOT ON HIGH BLOOD PRESSURE MEDICATIONS) 05/12/2024 Assessment Noted Time PHQ-9 Depression Total Score: 2 01/27/20 25 2:59 PM CDT documented as of this encounter Care Teams Hot Cell Technician Relationship Specialty Start Date End Date Jamila Lee APRN, SALESPERSON BOOKS [address] [place] [address] PCP - General Advanced Practice Nurse 05/12/24 documented as of this encounter
--- OUTSIDE RECORDS SUMMARY | 2025-06-12 10:12 | XMS_ITS | Encounter Summary ---
Author Organization [facility] Address [address] [place] [address] Phone Care Team Providers Care Signal Wirer Name Role Phone Vijay Franco MD Unavailable Provider, None Primary Care Provider Jamila Damon APRN, DYER AND WASHER Primary Care P rovider Reason for Visit * Reason Comments Medication Refill Encounter Details Date Type Department Care Team (Late st Contact Info) Description 12/16/2020 Refill [facility] PULMONOLOGY [address] [place] [address] Vijay Franco MD [address] [place] [address] Medication Refill Social History Tobacco Use Types Packs/Day Years Used Date Smoking Tobacco: Never Smokeless Tobacco: Never Alcohol Use Standard Drinks/Week Comments Yes 0 (1 standard drink = 0.6 oz pur e alcohol) OCCASIONALLY Comments No Sex and Gender Information Value Date Recorded Sex Assigned at Female 05/20/2024 10:10 AM CREDIT HISTORIAN Legal Sex Female 12:44 AM CDT Gender Identity Female 05/20/2024 10:10 AM CREDIT HISTORIAN Sexual Orientation Straight 05/20/2024 10 :10 AM CREDIT HISTORIAN documented as of this encounter Plan of Treatment Upcoming Encounters Date Type Department Care Team (Late st Contact Info) Description 06/14/2025 2:45 PM CREDIT HISTORIAN Office Visit [facility] - Primary Care - [place] [address] [place] [phone] Jamila Lee APRN, DYER AND WASHER [address] [place] [address] documented as of this encounter Visit Diagnoses Not on filedocumented in this encounter Additional Health Concerns Infection Onset Date Last Indicated Resolved Time COVID - 19 06/06/2021 06/06/2021 06/06/2021 12:3 2 PM CREDIT HISTORIAN COVID - 19 06/06/2021 06/06/2021 06/26/2021 12:1 6 AM CREDIT HISTORIAN documented as of this encounter Care Teams Signal Wirer Relationship Specialty Start Date End Date Provider, None [place] PCP - General 05/10/16 05/11/24 Jamila Lee APRN, DYER AND WASHER [address] [place] [address] PCP - General Advanced Practice Nurse 05/12/24 Vijay Franco MD Consulting Physician Pulmonary Disease 05/10/16 documented as of this encounter
[2025-06-12 11:28] LABS: Anion Gap 8 mmol/L (4-12); Blood Urea Nitrogen 22 mg/dL (7-17); Calcium 9.6 mg/dL (8.4-10.2); Carbon Dioxide 27 mmol/L (22-30); Chloride 101 mmol/L (98-107); Estimated Glomerular Filt Rate 51; Glucose 118 mg/dL (65-110); Potassium 4.3 mmol/L (3.4-5.0); Sodium 136 mmol/L (137-145)
== END 2025-06-12 10:09 | disposition home or self-care (01) ==
LOC: ANHLAB 10:10
PROVIDERS: Referring Provider Anesthesiology; Visit Provider Urology
DX: N30.10 Interstitial cystitis (chronic) without hematuria (principal); Z51.81 Encounter for therapeutic drug level monitoring; Z79.899 Other long term (current) drug therapy
CPT/HCPCS: 36415; 80048; 87086

== ENCOUNTER 2025-06-18 02:24 | Day surgery (SDC) | payer BC, MEDICARE, SELFPAY ==
[2025-06-11 10:41] VITALS: BMI 51.1
--- NOTE | 2025-06-11 11:08 | PC.NURSE ---
[facility] has started construction of its new state of the art ER which will open Spring 2026. With this, we anticipate parking may be a challenge for some our surgical patients and families. Parking spaces are limited but are available for all Surgical, obstetrics, and ER patients sharing this lot. If you arrive and find you are having a hard time finding a parking space, please note that we understand the challenges, please drive around the hospital and park near Hospital Entrance 1. When you enter this entrance, you can ask a volunteer to direct or take you back to the surgical waiting area to check in. We appreciate everyone?s understanding of these expected challenges while we build for your future. Report to the Outpatient Waiting Room, entrance under the green pavilion located off [address], at time __6:00AM____ on date ___06/18/25__. Planned Procedure Time: ___7:30AM Time changes happen often and if your time is changed the preop area will call you the afternoon before. - You and your visitor will be asked to self-screen and do not enter if you have any COVID symptoms. Please call surgeon if you need to reschedule. - A mask is optional within the hospital at this time. Patients may have clear liquids (water, carbonated beverages, clear teas, apple juice) until 3 hours prior to surgery (4:30AM) with a maximum of 20 ounces. - No food from midnight until time of surgery and no smoking, or chewing tobacco (or any form of nicotine). No chewing gum, candy or mints. Take only the following medications with a SIP of water on the morning of surgery: __LEVOTHYROXINE, QVAR INHALER___ MAY USE ALBUTEROL INHALER NEEDED DO NOT STOP ANY OF YOUR OTHER PRESCRIPTION MEDICATIONS PRIOR TO SURGERY EXCEPT THE FOLLOWING Medications to discontinue per physician ___HOLD IBUPROFEN AND ALL VITAMINS/SUPPLEMENTS 7 DAYS PRE-OP PER DR MCKEON, PER PATIENT____ Date to take last dose 06/10/25 Please no make-up, nail maori, hairspray, perfume, deodorant, or body powder the day of surgery.? No jewelry (including any body piercings) or valuables the day of surgery, leave them at home.? Please take a shower or bath the night before, or the morning of, surgery with an antibacterial soap.? Wear comfortable, loose fitting clothing.? - Jewelry must be removed prior to entering the operating room.? Rings and piercings that are not removed may be cut off. - The hospital will not accept responsibility for valuables.? - Please leave all valuables, including medications, at home the day of surgery. If you are going home after surgery, a licensed test car driver must drive you home.? - NO public transportation without another adult if you receive anesthesia. - We recommend that an adult stay with you for 24 hours following discharge. - We also recommend that you do not drive, make important decision, drink alcoholic beverages, or take any drugs that were not prescribed by your health care provider for at least 24 hours after your discharge time. Follow any additional instructions given to you from your surgeon. Telephone instructions given to ____PATIENT and asked if any additional questions and then verbalized understanding. Patient advised to call surgeon office or pre surgery nurse liaison [phone] if any additional questions.
--- NOTE | 2025-06-12 15:53 | PM.IMHP2 ---
H&P: HPI History of Present Illness Date/Time: 06/12/25 15:53 Chief Complaint: surgery Narrative: in need of another steroid injection. It has been since January 2024 since her last treatment Review of Systems Review of Systems: All systems reviewed & are unremarkable except as noted in HPI and below PMFSH Past Medical History Medical History Asthma Morbid obesity Family History Family History Other Diabetes mellitus Family history of cardiovascular disease Family history of elevated blood lipids Social History Social History Smoking status: Never smoker Second hand tobacco smoke exposure: No Alcohol intake: current Alcohol use details: VERY RARE Substance use: never Substance use type: does not use Lack of Transportation: No Lack of Food: Never True Current Housing: I Have Housing Concerned About Future Housing: No Difficulty Paying Gas/Electric Bills: No Difficulty Paying for Meds: No Currently Unemployed: No Education: Bachelor's Degree Difficulty w/ Childcare or Family Care: No Living arrangements: with family Additional living arrangements comments: [facility] Spiritual care concerns: No Meds Home Medications and Allergies Home Medications ?Medication ?Instructions ?Recorded ?Confirmed ?Type biotin 5 mg tablet 5 mg PO DAILY 01/26/22 06/11/25 History calcium 500 mg (as 1 tablet PO DAILY 03/20/23 06/11/25 History carbonate)-vitamin D3 5 mcg (200 unit) tablet Lactobacillus 1 cap PO DAILY 01/28/24 06/11/25 History acidophilus-Bifidobac.animalis 2.5 billion cell capsule (Daily Probiotic) albuterol sulfate 90 mcg/actuation 2 inh inhalation QID PRN Wheezing 01/28/24 06/11/25 History aerosol inhaler cetirizine 10 mg tablet (Zyrtec) 10 mg PO DAILY 01/28/24 06/11/25 History d-mannose 500 mg capsule (AZO 1,000 mg PO DAILY PRN bladder 01/28/24 06/11/25 History D-Mannose) spasms dextromethorphan-guaifenesin ER 60 1 tablet PO Q12H PRN MUCOUS 01/28/24 06/11/25 History mg-1,200 mg tab,extend release,12hr (Mucinex DM) ibuprofen 600 mg tablet 600 mg PO BID PRN Pain 01/28/24 06/11/25 History atorvastatin 20 mg tablet 20 mg PO QAM 06/11/25 06/11/25 History beclomethasone dipropionate 40 1 inh inhalation Q12H 06/11/25 06/11/25 History mcg/actuation HFA breath activated aerosol (Qvar RediHaler) levothyroxine 112 mcg tablet 112 mcg PO QAM 06/11/25 06/11/25 History losartan 50 mg-hydrochlorothiazide 1 tablet PO QAM 06/11/25 06/11/25 History 12.5 mg tablet montelukast 10 mg tablet 10 mg PO DAILY 06/11/25 06/11/25 History Allergies Allergy/AdvReac Type Severity Reaction Status Date / Time propoxyphene (From Allergy Unknown Hives Verified 06/11/25 10:31 Darvocet-N) erythromycin base AdvReac Unknown Diarrhea Verified 06/11/25 10:31 Exam Narrative: no apparent distress Assessment and Plan Assessment and plan (1) 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
[2025-06-18 06:30] VITALS: BP 147/87; PULSE 80; RESP 18; TEMP 36.8; O2SAT 96; BMI 50.5
[2025-06-18] MEDS: LACTATED RINGERS 1,000 ML 30 ML IV CONT (06:55)
--- NOTE | 2025-06-18 06:58 | WPDANESEPPF ---
Anes - Initial Pre Proc Eval Procedure: Operation Date: 06/18/25 07:30 Proposed Procedures p Cystoscopy, Bladder Biopsy, Steroid Injection - Clemente Weaver MD Date/Time: 06/18/25 06:58 Surgeon: Clemente Weaver MD Pre Op Diagnosis: hunners ulcer Patient Data Age: 64 Gender: F Height: 1.6 m Weight: 131 kg Allergies Allergy/AdvReac Type Severity Reaction Status Date / Time propoxyphene (From Allergy Unknown Hives Verified 06/11/25 10:31 Darvocet-N) erythromycin base AdvReac Unknown Diarrhea Verified 06/11/25 10:31 Home Medications ?Medication ?Instructions ?Recorded ?Confirmed ?Type biotin 5 mg tablet 5 mg PO DAILY 01/26/22 06/11/25 History calcium 500 mg (as 1 tablet PO DAILY 03/20/23 06/11/25 History carbonate)-vitamin D3 5 mcg (200 unit) tablet Lactobacillus 1 cap PO DAILY 01/28/24 06/11/25 History acidophilus-Bifidobac.animalis 2.5 billion cell capsule (Daily Probiotic) albuterol sulfate 90 mcg/actuation 2 inh inhalation QID PRN Wheezing 01/28/24 06/11/25 History aerosol inhaler cetirizine 10 mg tablet (Zyrtec) 10 mg PO DAILY 01/28/24 06/11/25 History d-mannose 500 mg capsule (AZO 1,000 mg PO DAILY PRN bladder 01/28/24 06/11/25 History D-Mannose) spasms dextromethorphan-guaifenesin ER 60 1 tablet PO Q12H PRN MUCOUS 01/28/24 06/11/25 History mg-1,200 mg tab,extend release,12hr (Mucinex DM) ibuprofen 600 mg tablet 600 mg PO BID PRN Pain 01/28/24 06/11/25 History atorvastatin 20 mg tablet 20 mg PO QAM 06/11/25 06/11/25 History beclomethasone dipropionate 40 1 inh inhalation Q12H 06/11/25 06/11/25 History mcg/actuation HFA breath activated aerosol (Qvar RediHaler) levothyroxine 112 mcg tablet 112 mcg PO QAM 06/11/25 06/11/25 History losartan 50 mg-hydrochlorothiazide 1 tablet PO QAM 06/11/25 06/11/25 History 12.5 mg tablet montelukast 10 mg tablet 10 mg PO DAILY 06/11/25 06/11/25 History Patient hx anesthesia problems: none Family hx anesthesia problems: none Results Review: All pre-operative results and documents have been reviewed as part of the pre-operative evaluation. [facility] Past Medical History Medical History Asthma Morbid obesity Surgical History Surgical History (Updated 06/18/25 @ 06:59 by Devin Aguilar MD) Hx of cystoscopy Family History Family History Other Diabetes mellitus Family history of cardiovascular disease Family history of elevated blood lipids Social History Social History Smoking status: Never smoker Second hand tobacco smoke exposure: No Alcohol intake: current Alcohol use details: VERY RARE Substance use: never Substance use type: does not use Lack of Transportation: No Lack of Food: Never True Current Housing: I Have Housing Concerned About Future Housing: No Difficulty Paying Gas/Electric Bills: No Difficulty Paying for Meds: No Currently Unemployed: No Education: Bachelor's Degree Difficulty w/ Childcare or Family Care: No Living arrangements: with family Additional living arrangements comments: [facility] Spiritual care concerns: No Anes - Eval Final PreProcedure Day of Procedure 06/18/25 06:58 Patient weight: morbidly obese Heart: regular rate and rhythm Lungs: clear to auscultation Airway: Mallampati scale class II Neurological: alert and oriented Last oral intake: >/= 8 hours ASA classification: III Emergent: no Anesthetic plan: proceed Anesthesia type and monitoring: general GIVS and standard monitoring Results Review: All pre-operative results and documents have been reviewed as part of the pre-operative evaluation. Informed Consent: The patient's anesthetic plan and its attendant risks and benefits were discussed with the patient/family/POA. Questions were solicited and answers provided to the satisfaction of the patient/family/POA.
--- NOTE | 2025-06-18 07:18 | WPDHPUPDATE1 ---
History and Physical Update Update Date/Time: 06/18/25 07:18 History and Physical has been reviewed, including an updated exam of the patient. There are NO changes in the patient's condition. Risks, benefits, and alternatives have been discussed and questions answered. Patient agrees to proceed with procedure.
[2025-06-18] MEDS: ceFAZolin 3 GM/D5W 100 ML 100 ML IVPB (07:29)
[2025-06-18] MEDS: LIDOCAINE 2% GEL UROJET 10 ML PKG MUCOUS MEM (07:47)
--- NOTE | 2025-06-18 07:49 | S_PTH ---
PATIENT: Jorge Orellana LOC: [facility]#:[id number] AGE/SX: 64/F ROOM: RE06/18/[address]: Clemente Weaver MD : 1960 BED: DIS: 06/18/2025 SPEC #: [id number] RECD: 06/18/25 09:07 STATUS: CEASAR REKelly #: [id number] MICHAEL: 06/18/25 07:[address]: Clemente Weaver DEPT: [facility] Surgical RECD BY: Erma Null Tissues: A - Bladder Biopsy Procedures: Mosqueda Keratin Hematoxylin and Eosin Stain Gross and Microscopic Level 4 CK 20
[2025-06-18] MEDS: TRIAMCINOLONE ACET INJ 40 MG/ML VIAL 200 MG IM (07:51)
[2025-06-18 07:58] VITALS: BP 111/70; PULSE 84; RESP 20; O2SAT 94
[2025-06-18 08:25] VITALS: BP 107/64; PULSE 81; RESP 20
--- NOTE | 2025-06-18 08:26 | P.OP_ITS ---
Procedure Note - Detailed Date of Procedure 06/18/25 Pre-op Diagnosis hunners ulcer Post-op Diagnosis Same Procedure Performed Cystoscopy, bladder biopsy, injection of steroids Surgeon Clemente Weaver MD Anesthesia MAC Indications This is a woman with the current Hunner's ulcerations. She is here today for re peat injection. She understands risks of bleeding, infection, damage to the urinary tract. She agrees to proceed She also understands the risks of lack of efficacy and that she will need repeat procedures in the future. Findings 2 areas of ulceration on the back wall the bladder Description of Procedure She was correctly identified. Informed consent was obtained. She is from the operating room. She was given sedation. She was prepped and draped sterile fashion. She was given appropriate perioperative antibiotics. A time-out was performed. Cystoscopy revealed no tumors or stones. She had trabeculation on the back wall the bladder and on that trabeculation there was 2 Hunner's ulcerations 1 on the right 1 on the left. I biopsied this area and generously fulgurated all lesions. I then injected Kenalog 40 milligrams/mL. 5 cc total for a total of 200 mg. There was no bleeding from the injection sites. The bladder was monitored under low insufflation pressures there was no bleeding. The bladder was drained. She was awakened transferred to PACU in stable condition. Estimated Blood Loss 1 Drains No Packing No Pathology Yes (Bladder biopsy) Complications No immediate complications Condition Stable Disposition PACU
[2025-06-18 08:55] VITALS: BP 140/70; PULSE 80; RESP 20
== END 2025-06-18 09:02 | disposition home or self-care (01) ==
PROVIDERS: Visit Provider Urology
PROC: 0TBB8ZX Excision of Bladder, Via Natural or Artificial Opening Endoscopic, Diagnostic (ICD-10-PCS; CPT 52204; principal; 2025-06-18 07:30)
DX: N30.10 Interstitial cystitis (chronic) without hematuria (principal); E66.01 Morbid (severe) obesity due to excess calories; Z68.43 Body mass index [BMI] 50.0-59.9, adult
CPT/HCPCS: 52283; 88305; 88342; J0690; J2704; J3010; J3301; J7120